=== PATIENT | female | born 1955 ===

== ENCOUNTER 2016-07-23 08:26 | Day surgery (SDC) | payer MEDICARE, OTHER ==
[2016-06-13 07:17] VITALS: BMI 23.3
[2016-07-23] MEDS ORDERED: Lactated Ringer's 500 ML IV ONE (10:01)
[2016-07-23] MEDS ORDERED: Propofol 10 mg/ml Inj (20 ML) ONE (11:03)
[2016-07-23 11:47] VITALS: TEMP 97.2
[2016-07-23 12:10] VITALS: BP 102/65; PULSE 60; RESP 11; O2SAT 100
== END 2016-07-23 14:35 | disposition home or self-care (01) ==
LOC: H.ENDO 08:26
PROVIDERS: ATTEND Internal Medicine Gastroenterology
DX: Z12.11 Encounter for screening for malignant neoplasm of colon (principal); K64.8 Other hemorrhoids; K29.50 Unspecified chronic gastritis without bleeding; K44.9 Diaphragmatic hernia without obstruction or gangrene; K30 Functional dyspepsia
CPT/HCPCS: 43239; 45378; 88305; J2001; J2704; J7120